=== PATIENT | male | born 1955 | race Caucasian/White ===

== ENCOUNTER → 2017-08-10 | Outpatient (CLI) | payer BC | END | disposition home or self-care (01) | LOC: RAD 13:53 | DX: I10 Essential (primary) hypertension (principal); R06.2 Wheezing; F17.200 Nicotine dependence, unspecified, uncomplicated ==

== ENCOUNTER → 2023-10-27 | Outpatient (CLI) | payer OTHER | END | disposition home or self-care (01) | LOC: US 08:14 | PROVIDERS: ATTEND Nurse Practitioner Family | DX: K76.0 Fatty (change of) liver, not elsewhere classified (principal); R79.89 Other specified abnormal findings of blood chemistry ==

== ENCOUNTER → 2024-11-15 | Outpatient (CLI) | payer OTHER | END | disposition home or self-care (01) | LOC: US 10:07 | PROVIDERS: ATTEND Nurse Practitioner | DX: E07.89 Other specified disorders of thyroid (principal); E03.9 Hypothyroidism, unspecified ==